=== PATIENT | male | born 1955 | race Hispanic/Latino ===

== ENCOUNTER 2018-08-23 13:16 | Emergency (ER) | payer SELFPAY ==
[~2018-08-23] VITALS: Ht 170.2 cm; Wt 90.7 kg
[2018-08-23] MEDS ORDERED: KETOROLAC TROMETHAMINE 60 MG/2 ML VIAL IM ONE (15:15)
[2018-08-23] MEDS ORDERED: DIAZEPAM 5 MG TAB PO ONE (15:15)
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
[2018-08-23] MEDS ORDERED: NAPROXEN250 MG PO (17:41)
[2018-08-23] MEDS ORDERED: ROBAXIN-750750 MG PO (17:41)
[2018-08-23 18:18] VITALS: BP 131/79
== END 2018-08-23 18:15 | disposition home or self-care (01) ==
LOC: ER 13:16
DX: M54.5 Low back pain (principal); S39.012A Strain of muscle, fascia and tendon of lower back, initial encounter; V43.62XA Car passenger injured in collision with other type car in traffic accident, initial encounter; Y92.488 Other paved roadways as the place of occurrence of the external cause
CPT/HCPCS: 70450; 72100; 72125; 99283; J1885